=== PATIENT | male | born 1965 | race African-American/Black ===

== ENCOUNTER 2024-07-28 16:39 | Emergency (ER) | payer OTHER ==
[2024-07-28] MEDS ORDERED: Ibuprofen 800 MG TAB ONE (17:37)
== END 2024-07-28 20:06 | disposition home or self-care (01) ==
LOC: ERS 16:39
DX: S63.124A Dislocation of interphalangeal joint of right thumb, initial encounter (principal); S83.91XA Sprain of unspecified site of right knee, initial encounter; Y04.8XXA Assault by other bodily force, initial encounter
CPT/HCPCS: 26641